=== PATIENT | female | born 1960 | race Caucasian/White ===

== ENCOUNTER 2016-07-10 16:27 | Emergency (ER) | payer BC ==
[~2016-07-10] VITALS: Ht 162.5 cm; Wt 83.9 kg
[2016-07-10 16:33] VITALS: BP 120/95
[2016-07-10] MEDS ORDERED: LEVOTHYROXINE0.05 M1 PO (16:38)
[2016-07-10 17:17] LABS: BASO % 0.5 % (0.0-1.0); EOS # 0.2 10*3/uL (0.0-0.4); EOS % 3.1 % (1.0-4.0); HEMATOCRIT 45.4 % (37.0-47.0); LYMPH # 2.7 10*3/uL (1.3-4.4); LYMPH % 35.8 % (27.0-41.0); MEAN CELL VOLUME 91.7 fl (81.0-99.0); MEAN CORPUSCULAR HGB 30.3 pg (27.0-31.0); MEAN PLATELET VOLUME 10.9 fl (9.6-12.3); MONO # 0.4 10*3/uL (0.1-1.0); MONO % 4.9 % (3.0-9.0); NEUT # 4.1 10*3/uL (2.3-7.9); NEUT % 55.4 % (47.0-73.0); PLATELET COUNT AUTOMATED 211 10*3/uL (130-400); RED BLOOD COUNT 4.95 10*6/uL (4.10-5.10); WHITE BLOOD COUNT 7.4 10*3/uL (4.8-10.8)
[2016-07-10 17:29] LABS: INTERNATIONAL NORM RATIO 0.9 (2.0-3.5)
[2016-07-10 17:34] LABS: ALBUMIN 4.1 gm/dl (3.1-4.5); ALKALINE PHOSPHATASE 68 U/L (45-117); BILIRUBIN, TOTAL 0.4 mg/dl (0.2-1.0); BUN 17 mg/dl (7-24); CARBON DIOXIDE 28 mmol/L (21-32); CHLORIDE 103 mmol/L (98-107); EST GLOM FILT AFRICAN AMERICAN > 60 ml/min; GLUCOSE 118 mg/dL (65-99); POTASSIUM 3.6 mmol/L (3.5-5.1); SGOT/AST 28 IU/L (3-35); SGPT/ALT 46 U/L (12-78); SODIUM 141 mmol/L (136-145); TOTAL PROTEIN 8.2 gm/dL (6.4-8.2)
[2016-07-10 17:40] LABS: TROPONIN I < 0.015 ng/ml (<0.5)
[2016-07-10 19:40] VITALS: BP 132/84
[2016-07-10 20:55] VITALS: BP 136/90
== END 2016-07-10 21:28 | disposition home or self-care (01) ==
LOC: ED 16:27 → EDHOLD 18:13 → ED 18:13
PROVIDERS: Student in an Organized Health Care Education/Training Program
DX: R04.2 Hemoptysis (principal); R00.0 Tachycardia, unspecified; Z91.041 Radiographic dye allergy status; Z79.899 Other long term (current) drug therapy